=== PATIENT | female | born 2000 | race Caucasian/White ===

== ENCOUNTER 2023-05-31 08:23 | Emergency (ER) | payer OTHER ==
[2023-05-31 08:42] VITALS: TEMP 97.6
[2023-05-31 09:28] LABS: Group A Strep NOT DETECTED (NEGATIVE)
[2023-05-31 09:33] VITALS: BP 105/68
[2023-05-31 09:39] LABS: INFLUENZA A NEGATIVE (NEGATIVE); INFLUENZA B NEGATIVE (NEGATIVE); RESPIRATORY SYNCTIAL VIRUS NEGATIVE (NEGATIVE); SARS-CoV-2 Xpert Express NEGATIVE (NEGATIVE)
--- NOTE | 2023-05-31 09:40 | ERPHSYRPT ---
- History of Present Illness Time Seen by Provider: 05/31/23 08:40 Source: patient Exam Limitations: no limitations Patient Subjective Stated Complaint: C/O nasal congestion. Patient states her 10 month old son recently had RSV and her mother, whom she lives with had Covid recently. Triage Nursing Assessment: Patient ambulated back to ER without difficulties. No SOB. Patient has an occassional, dry, non-productive cough. Nasal congestion is present. Skin tone normal. JONES WNL. She is alert and oriented; anxious. Physician History: Patient is a 23-year-old female presents to our ED for evaluation of nasal congestion. Patient is concerned as her symptoms have been ongoing for 7 days. Positive sick contacts. Patient states she has been exposed to RSV and COVID. Patient symptoms are constant. Symptoms are moderate in intensity. No specific worsening or improving factors. No associated nausea vomiting or diarrhea. Patient admits to a infrequent dry cough otherwise she feels well. Patient currently afebrile. Patient states she is otherwise healthy and fully vaccinated. She voices no other complaints or concerns at this time. Portions of this note were created with voice recognition technology. There may be grammatical, spelling, punctuation or sound alike errors Timing/Duration: day(s) Severity: moderate Modifying Factors: Improves With: nothing Associated Symptoms: denies symptoms, No nausea, No fever, No syncope, No weakness Allergies/Adverse Reactions: No Known Drug Allergies Allergy (Verified 05/31/23 08:28) Home Medications: Ondansetron ODT 4 MG [Zofran Odt 4 mg] 1 tab PO Q8H PRN PRN 05/31/23 [History] Hx Tetanus, Diphtheria Vaccination/Date Given: Yes Hx Influenza Vaccination/Date Given: No Immunizations Up to Date: Yes Travel Risk - International Travel Have you traveled outside of the country in past 3 weeks: No - Coronavirus Screening Are you exhibiting any of the following symptoms?: Yes Symptoms: Cough: New Onset, Headaches/Body Aches/Fatigue Close contact with a COVID-19 positive Pt in past 14-21 Days: Yes - Vaccine Status Have you recieved a Covid-19 vaccination: Yes Bread Dough Mixer: Moderna - Vaccination Dates Date of 2cond Vaccination (if applicable): ? - Review of Systems Constitutional: No Symptoms, No Fever, No Chills Eyes: No Symptoms Ears, Nose, & Throat: No Symptoms Respiratory: No Symptoms, No Cough, No Dyspnea Cardiac: No Symptoms, No Chest Pain, No Edema, No Syncope Abdominal/Gastrointestinal: No Symptoms, No Abdominal Pain, No Nausea, No Vomiting, No Diarrhea Genitourinary Symptoms: No Symptoms, No Dysuria Musculoskeletal: No Symptoms, No Back Pain, No Neck Pain Skin: No Symptoms, No Rash Neurological: No Symptoms, No Dizziness, No Focal Weakness, No Sensory Changes Psychological: No Symptoms Endocrine: No Symptoms Hematologic/Lymphatic: No Symptoms Immunological/Allergic: No Symptoms All Other Systems: Reviewed and Negative - Past Medical History Pertinent Past Medical History: Yes Respiratory History: Other Musculoskeletal History: Fractures Psycho-Social History: Depression Other Medical History: "exercise asthma" - Past Surgical History Past Surgical History: Yes Musculoskeletal: Other Other Surgical History: leg (tib/fib), right shoulder with a plate, ankle - Social History Smoking Status: Never smoker Exposure to second hand smoke: No Drug Use: none Patient Lives Alone: No - Female History Hx Last Menstrual Period: ? Hx Now: Yes Gestational Age: ? - Nursing Vital Signs Nursing Vital Signs: Initial Vital Signs Temperature 97.6 F 05/31/23 08:31 Pulse Rate 100 H 05/31/23 08:31 Respiratory Rate 18 05/31/23 08:31 Blood Pressure 120/96 05/31/23 08:31 O2 Sat by Pulse Oximetry 98 05/31/23 08:31 Pain Scale Pain Intensity 0 - Physical Exam General Appearance: no apparent distress, alert Eye Exam: PERRL/EOMI, eyes nml inspection Ears, Nose, Throat Exam: normal ENT inspection, TMs normal, pharynx normal, moist mucous membranes, other (Nasal congestion) Neck Exam: normal inspection, non-tender, supple, full range of motion Respiratory Exam: normal breath sounds, lungs clear, airway intact, No respiratory distress Cardiovascular Exam: regular rate/rhythm, normal heart sounds, normal peripheral pulses Gastrointestinal/Abdomen Exam: soft, normal bowel sounds, No tenderness, No mass Back Exam: normal inspection, normal range of motion, No CVA tenderness, No vertebral tenderness Extremity Exam: normal inspection, normal range of motion, pelvis stable Neurologic Exam: alert, oriented x 3, cooperative, normal mood/affect, sensation nml, No motor deficits Skin Exam: normal color, warm, dry, No rash Lymphatic Exam: No adenopathy SpO2 Interpretation: normal SpO2: 95 O2 Delivery: Room Air - Course Nursing assessment & vital signs reviewed: Yes Lab/Rad Data: Laboratory Results 05/31/23 Range/Units Unknown Influenza Type A Ag NEGATIVE (NEGATIVE) Influenza Type B Ag NEGATIVE (NEGATIVE) RSV (PCR) NEGATIVE (NEGATIVE) SARS-CoV-2 (PCR) NEGATIVE (NEGATIVE) Group A Strep Antibody NOT DETECTED (NEGATIVE) - Progress Progress: improved Progress Note: Patient a 23-year-old female , states she is due in July presents to our ED for nasal congestion evaluation. She has no complaints regarding her . Physical exam essentially nonremarkable. Patient RSV flu COVID- negative. Rapid strep negative. Vital stable. No indication for further workup. Patient explained the importance of hydration and symptomatic/conservative management. Patient agrees to follow-up with her primary care doctor within 48 hours for evaluation. Family at bedside. They voiced no other complaints or concerns at this time. Portions of this note were created with voice recognition technology. There may be grammatical, spelling, punctuation or sound alike errors Complains of problem addressed is low acute uncomplicated No critical care time Complexity of data reviewed and analyzed is minimal. Test ordered test reviewed. Results analyzed and correlated clinically with history and physical exam. Risk of complication and or risk morbidity/mortality of patient management is low Vital stable. Time spent to discharge patient is approximately 10 minutes. Diagnosis is upper respiratory infection. Plan of care established for shared decision making. No social determinants of health present impede follow-up. Portions of this note were created with voice recognition technology. There may be grammatical, spelling, punctuation or sound alike errors 05/31/23 09:50 Counseled pt/family regarding: lab results, diagnosis, need for follow-up - Departure Departure Disposition: Home Clinical Impression: URI (upper respiratory infection) Condition: Stable Critical Care Time: No Referrals: KAYCE RODRIGUEZ MD [Primary Care Provider] - Follow up/PCP as directed Additional Instructions: Discharge/Care Plan JENNIFFER CLEARY was seen on 05/31/23 in the Emergency Room. The patient was counseled regarding Diagnosis,Lab results, Imaging studies, need for follow up and when to return to the Emergency Room. Prescriptions given: Discharge Note I have spoken with the patient and/or caregivers. I have explained the patient's condition, diagnosis and treatment plan based on the information available to me at this time. I have answered the patient's and/or caregiver's questions and addressed any concerns. The patient and/or caregivers have as good understanding of the patient's diagnosis, condition and treatment plan as can be expected at this point. The vital signs have been stable. The patient's condition is stable and appropriate for discharge from the emergency department. The patient will pursue further outpatient evaluation with the primary care physician or other designated or consulting physician as outlined in the discharge instructions. The patient and/or caregivers are agreeable to this plan of care and follow-up instructions have been explained in detail. The patient and/or caregivers have received these instruction. The patient/and or caregivers are aware that any significant change in condition or worsening of symptoms should prompt an immediate return to this or the closest emergency department or call 911.
[2023-05-31 09:52] VITALS: PULSE 98; RESP 18
[2023-05-31 09:54] VITALS: O2SAT 95
== END 2023-05-31 10:04 | disposition home or self-care (01) ==
LOC: ED 08:23
DX: J06.9 Acute upper respiratory infection, unspecified (principal); R09.81 Nasal congestion; R05.9 Cough, unspecified; Z20.828 Contact with and (suspected) exposure to other viral communicable diseases
CPT/HCPCS: 0241U; 87651; 99282

== ENCOUNTER 2023-08-09 03:05 | Inpatient (IN) | payer OTHER ==
[2023-08-09] MEDS ORDERED: TYLENOL EXTRA STRENGTH 500 MG PO PRN (18:00)
[2023-08-09] MEDS ORDERED: Nubain 10 MG/ML IV PRN (18:00)
[2023-08-09] MEDS ORDERED: STADOL 2 MG IV PRN (18:00)
[2023-08-09] MEDS ORDERED: Ephedrine Sulfate 50 MG/ML IV PRN (18:00)
[2023-08-09] MEDS ORDERED: PITOCIN 30 UNITS/ LR 500 ML 30 UNITS/500 ML PLAST..BAG IV SCH (18:00)
[2023-08-09 20:07] LABS: Absolute Neutrophil Ct (ANC) 4.85 x10^3/uL (1.4-6.9); BASOPHIL % 0.3 % (0.0-0.4); Basophil (Absolute #) 0.02 x10^3/uL (0-0.4); Eosinophil % 0.5 % (0.00-5.0); Eosinophil (Absolute #) 0.04 x10^3/uL (0-0.5); Hematocrit 32.4 % (35-47); Hemoglobin 9.7 g/dL (12.0-16.0); IMMATURE GRAN # 0.04 x10^3u/L (0.00-0.03); IMMATURE GRAN % 0.5 % (0.00-0.4); Lymphocyte (Absolute #) 2.31 x10^3/uL (1.0-4.6); Lymphocytes % 29.5 % (24.0-44.0); Mean Cell Volume 79.8 fL (78-100); Mean Corpuscular Hemoglobin 23.9 pg (26-32); Mean Corpuscular Hgb Concent. 29.9 g/dL (32-36); Mean Platelet Volume 10.3 fL (7.5-11.0); Monocyte (Absolute #) 0.56 x10^3/uL (0.0-1.3); Monocytes % 7.2 % (0.0-12.0); Platelet Count 239 x10^3/uL (150-450); Red Blood Count 4.06 x10^6/uL (4.1-5.4); White Blood Count 7.8 x10^3/uL (4.0-10.5)
[2023-08-09] MEDS: Zofran 4 MG/2 ML VIAL IV PRN (20:21)
[2023-08-09 20:29] LABS: Appearance Clear (Clear); Bacteria Rare /HPF (None Seen); Bilirubin Negative (Negative); Blood Negative (Negative); Epithelial Cells Few /HPF (None Seen); Glucose, Urine Negative (Negative); Hyaline Casts NONE SEEN /LPF (0-2); Ketones Trace (Negative); Leukocyte Esterase Large (Negative); Nitrite Negative (Negative); Ph 6.5 (4.6-8.0); Protein,Urine Dip Trace (Negative); RBC 0-2 /HPF (0-5); WBC 51-100 /HPF (0-5)
[2023-08-09] MEDS ORDERED: BENADRYL 25 MG CAPSULE PO PRN (20:32)
[2023-08-09 20:42] LABS: ADD URINE CULTURE? YES (NO)
[2023-08-09 21:07] LABS: ABO TYPING O; Antibody Screen NEGATIVE (NEGATIVE); RH TYPING POSITIVE
[2023-08-09 22:23] LABS: Slide Review 1 YES
[2023-08-09 22:38] LABS: Amphetamine,Urine SEE SEPARATE REPORT (NEGATIVE); Barbiturate,Urine SEE SEPARATE REPORT (NEGATIVE); Benzodiazepine,Urine SEE SEPARATE REPORT (NEGATIVE); Cocaine,Urine SEE SEPARATE REPORT (NEGATIVE); Methadone,Urine SEE SEPARATE REPORT (NEGATIVE); Opiate,Urine SEE SEPARATE REPORT (NEGATIVE); PCP,Urine SEE SEPARATE REPORT (NEGATIVE); THC,Urine SEE SEPARATE REPORT (NEGATIVE)
[2023-08-10] MEDS: Lactated Ringers 1,000 ML IV SCH (00:26)
[2023-08-10] MEDS: OMNIPEN 2 GM*** 2 G in Sodium Chloride 100ML MINI-BAG PLUS 100 ML IV SCH (01:50)
[2023-08-10] MEDS: MORPHINE SULFATE 4 MG INJ IV PRN (02:05)
[2023-08-10] MEDS: Lactated Ringers 1,000 ML IV ONE (03:57)
[2023-08-10] MEDS ORDERED: XYLOCAINE 2%/Epi 1:200000 20ML VIAL MPF ONE (04:47)
[2023-08-10] MEDS ORDERED: XYLOCAINE 1% HCL 20 ML MDV ONE ×2 (04:48→11:44)
[2023-08-10] MEDS: OMNIPEN 1 GM*** 1 GM in Sodium Chloride 100ML MINI-BAG PLUS 100 ML IV SCH (05:27)
[2023-08-10] MEDS: Zofran 4 MG/2 ML VIAL IV PRN (05:58)
[2023-08-10] MEDS: XYLOCAINE 1% HCL 20 ML MDV IJ ONE (06:02)
[2023-08-10] MEDS: FENTANYL 2 MCG-BUPIV 0.125%-NS 250 ML Epidur 250 ML EPIDURAL SCH (06:30)
[2023-08-10] MEDS: PITOCIN 30 UNITS/ LR 500 ML 30 UNITS/500 ML PLAST..BAG IV SCH (06:31)
--- NOTE | 2023-08-10 07:31 | PCM.HP ---
History of Present Illness - Chief Complaint Chief Complaint: IUP Date: 08/10/23 History of Present Illness: is a 23 year old female. who is a at 40 weeks and 1 day today. She presneted last evening for elective Induction of labor. Pregtnancy has been complicated by iron def anemia, Mulitple UTI's, social issues relatd to previous child, obesity, and GBS pos. She was given Cytotec 25 mcg x 2 po and was faby well antibiotics were started at around 1 am for GBS pos status. She had SROM around 305 am. She then requested Epidural and this was placed 530 am. She was then examined around 530 am and was 3-4 cm/75/-2. I was updated to the events and then notified around 650 am that the patient was experiencing left upper shoulder pain since the epidural was placed. while on the phone she was screaming out in pain. I then headed to hospital and ordered Morphine 4 mg IV and an EKG. On arrival I examined the patient and she was a little groggy but abl to answere questions. She stated that the pain started after epidural placement and is severe. She has a baseline shoulder pain in the right from a previous trauma injury. She states the morphine has helped some and she is not screaming out any more. She has no other symptoms no CP, No SOB. HEr VS are stable O2 sat was 98%. - Review of Systems Constitutional: No Fever, No Chills Eyes: No Symptoms Ears, Nose, & Throat: No Symptoms Respiratory: No Cough, No Short Of Breath Cardiac: No Chest Pain, No Edema, No Syncope Abdominal/Gastrointestinal: No Abdominal Pain, No Nausea, No Vomiting, No Diarrhea Genitourinary Symptoms: Other (has had frequent UTI), No Dysuria Musculoskeletal: Other (LEft Shoulder pain ) Skin: No Rash Neurological: No Dizziness, No Focal Weakness, No Sensory Changes Psychological: No Symptoms Endocrine: No Symptoms Hematologic/Lymphatic: No Symptoms Immunological/Allergic: No Symptoms Medications & Allergies Home Medications: Home Medication List Ondansetron ODT 4 MG [Zofran Odt 4 mg] 1 tab PO Q8H PRN PRN 05/31/23 [History Confirmed 08/09/23] Mv-Mn/Iron/FA/Herbal/Digestive [ One Tablet] 1 each PO 08/09/23 [History] Nystatin Powder 15 gm [Nystop Powder 15 gm] 15 gm TP 08/09/23 [History] Allergies/Adverse Reactions: Allergies Allergy/AdvReac Type Severity Reaction Status Date / Time latex Allergy Intermediate Hives Verified 08/09/23 21:29 - Past Medical History Past Medical History: Yes Neurological History: No Pertinent History ENT History: No Pertinent History Cardiac History: No Pertinent History Respiratory History: No Pertinent History, Other Endocrine Medical History: No Pertinent History Musculoskelatal History: Fractures, Other (Right shoulder pain ) GI Medical History: No Pertinent History History: No Pertinent History Pyscho-Social History: Depression Reproductive Disorders: No Pertinent History Comment: "exercise asthma" - Female History Are you now?: Yes (LILI 08/09/2023) Expected Date of Delivery: 08/09/23 - Past Surgical History Past Surgical History: Yes (shoulder surgery in 2016) Neuro Surgical History: No Pertinent History Cardiac History: No Pertinent History Respiratory Surgery: No Pertinent History GI Surgical History: No Pertinent History Genitourinary Surgical Hx: No Pertinent History Musculskeletal Surgical Hx: Other Female Surgical History: No Pertinent History Other Surgical History: leg (tib/fib), right shoulder with a plate, ankle - Social History Smoking Status: Never smoker Exposure to second hand smoke: No Alcohol: None Drug Use: none - Social Determinants of Health Will the patient participate in the screening: Yes Do you worry about a steady place to live?: No Do you have any problems with any of the following?: No known problems In the past 12 months,have you had to go without utilities?: No Have you or anyone in your house had to go without enough: No Transportation Issues: No Has anyone in your support network made you feel unsafe?: No Does the patient want assistance with any of the above?: No - Physical Exam Vital Signs: Vital Signs - 24 hr Temp Pulse Resp BP BP Pulse Ox 08/10/23 07:00 83 24 140/87 100 08/10/23 06:01 98.3 F 90 20 121/70 97 08/10/23 05:30 98.3 F 90 20 121/70 97 08/10/23 05:00 98.3 F 90 20 121/70 97 08/10/23 03:58 98.3 F 90 20 121/70 97 08/10/23 03:05 98.3 F 90 20 121/70 97 08/10/23 03:00 98.3 F 90 20 121/70 107/56 97 08/10/23 02:00 90 20 121/70 97 08/10/23 01:00 79 16 79 L 08/10/23 00:00 81 16 87 L 08/09/23 23:53 81 16 107/56 96 08/09/23 23:00 96 H 20 97 08/09/23 22:00 80 18 97 08/09/23 21:00 96 H 20 97 08/09/23 20:00 98.1 F 94 H 20 97 08/09/23 19:30 98.1 F 94 H 20 115/72 97 General Appearance: no apparent distress, mild distress, alert, other (From Shoulder pain.) Neurologic Exam: alert, oriented x 3, cooperative, normal mood/affect, nml cerebellar function, nml station & gait, sensation nml, No motor deficits Eye Exam: PERRL/EOMI, eyes nml inspection Ears, Nose, Throat Exam: normal ENT inspection, TMs normal, pharynx normal, moist mucous membranes Neck Exam: other (difficulty with flexion of neck) Respiratory Exam: normal breath sounds, lungs clear, No respiratory distress Cardiovascular Exam: regular rate/rhythm, normal heart sounds, normal peripheral pulses Gastrointestinal/Abdomen Exam: soft, normal bowel sounds, other (Gravid uterus), No tenderness, No mass Pelvic Exam: not done, other (Last cervical exam at 530 am 3-4/75%/-2 FHT: Reviewed and have been CAt 1 toco: Q3-4 min) Back Exam: other (back exam done she is having pain to the touch midway up the back on the right side to the right shoulder and top of the shoulder. She is unable to raise her right arm. She is having pain with neck flexion.) Extremity Exam: normal inspection, normal range of motion, pelvis stable Skin Exam: normal color, warm, dry, No rash Lymphatic Exam: No adenopathy Results - Labs Lab/Micro Results: Lab Results-Last 24 Hours 08/09/23 08/09/23 08/09/23 Range/Units 19:57 19:57 20:00 WBC 7.8 (4.0-10.5) x10^3/uL RBC 4.06 L (4.1-5.4) x10^6/uL Hgb 9.7 L (12.0-16.0) g/dL Hct 32.4 L (35-47) % MCV 79.8 (78-100) fL MCH 23.9 L (26-32) pg MCHC 29.9 L (32-36) g/dL RDW 29.0 H (11.5-14.0) % Plt Count 239 (150-450) x10^3/uL MPV 10.3 (7.5-11.0) fL Gran % 62.0 (36.0-66.0) % Immature Gran % (Auto) 0.5 H (0.00-0.4) % Nucleat RBC Rel Count 0.0 (0.00-0.1) % Eos # (Auto) 0.04 (0-0.5) x10^3/uL Immature Gran # (Auto) 0.04 H (0.00-0.03) x10^3u/L Absolute Lymphs (auto) 2.31 (1.0-4.6) x10^3/uL Absolute Monos (auto) 0.56 (0.0-1.3) x10^3/uL Absolute Nucleated RBC 0.00 (0.00-0.01) x10^3u/L Lymphocytes % 29.5 (24.0-44.0) % Monocytes % 7.2 (0.0-12.0) % Eosinophils % 0.5 (0.00-5.0) % Basophils % 0.3 (0.0-0.4) % Absolute Granulocytes 4.85 (1.4-6.9) x10^3/uL Basophils # 0.02 (0-0.4) x10^3/uL Urine Color Yellow (Yellow) Urine Appearance Clear (Clear) Urine pH 6.5 (4.6-8.0) Ur Specific [place] 1.020 (1.005-1.030) Urine Protein Trace A (Negative) Urine Glucose (UA) Negative (Negative) mg/dL Urine Ketones Trace A (Negative) Urine Blood Negative (Negative) Urine Nitrite Negative (Negative) Urine Bilirubin Negative (Negative) Urine Urobilinogen 2.0 A (0.2) mg/dL Ur Leukocyte Esterase Large A (Negative) U Hyaline Cast (Auto) NONE SEEN (0-2) /LPF Urine Microscopic RBC 0-2 (0-5) /HPF Urine Microscopic WBC 51-100 A (0-5) /HPF Ur Epithelial Cells Few (None Seen) /HPF Urine Bacteria Rare A (None Seen) /HPF Urine Culture Reflexed YES (NO) Urine Opiates Level (NEGATIVE) Ur Methadone (NEGATIVE) Urine Barbiturates (NEGATIVE) Ur Phencyclidine (PCP) (NEGATIVE) Urine Amphetamine (NEGATIVE) U Benzodiazepine Level (NEGATIVE) Urine Cocaine (NEGATIVE) Urine Marijuana (THC) (NEGATIVE) Slides for Path Review YES ABO Group O Rh Factor POSITIVE Antibody Screen NEGATIVE (NEGATIVE) 08/09/23 Range/Units 20:08 WBC (4.0-10.5) x10^3/uL RBC (4.1-5.4) x10^6/uL Hgb (12.0-16.0) g/dL Hct (35-47) % MCV (78-100) fL MCH (26-32) pg MCHC (32-36) g/dL RDW (11.5-14.0) % Plt Count (150-450) x10^3/uL MPV (7.5-11.0) fL Gran % (36.0-66.0) % Immature Gran % (Auto) (0.00-0.4) % Nucleat RBC Rel Count (0.00-0.1) % Eos # (Auto) (0-0.5) x10^3/uL Immature Gran # (Auto) (0.00-0.03) x10^3u/L Absolute Lymphs (auto) (1.0-4.6) x10^3/uL Absolute Monos (auto) (0.0-1.3) x10^3/uL Absolute Nucleated RBC (0.00-0.01) x10^3u/L Lymphocytes % (24.0-44.0) % Monocytes % (0.0-12.0) % Eosinophils % (0.00-5.0) % Basophils % (0.0-0.4) % Absolute Granulocytes (1.4-6.9) x10^3/uL Basophils # (0-0.4) x10^3/uL Urine Color (Yellow) Urine Appearance (Clear) Urine pH (4.6-8.0) Ur Specific [place] (1.005-1.030) Urine Protein (Negative) Urine Glucose (UA) (Negative) mg/dL Urine Ketones (Negative) Urine Blood (Negative) Urine Nitrite (Negative) Urine Bilirubin (Negative) Urine Urobilinogen (0.2) mg/dL Ur Leukocyte Esterase (Negative) U Hyaline Cast (Auto) (0-2) /LPF Urine Microscopic RBC (0-5) /HPF Urine Microscopic WBC (0-5) /HPF Ur Epithelial Cells (None Seen) /HPF Urine Bacteria (None Seen) /HPF Urine Culture Reflexed (NO) Urine Opiates Level SEE SEPARATE REPORT (NEGATIVE) Ur Methadone SEE SEPARATE REPORT (NEGATIVE) Urine Barbiturates SEE SEPARATE REPORT (NEGATIVE) Ur Phencyclidine (PCP) SEE SEPARATE REPORT (NEGATIVE) Urine Amphetamine SEE SEPARATE REPORT (NEGATIVE) U Benzodiazepine Level SEE SEPARATE REPORT (NEGATIVE) Urine Cocaine SEE SEPARATE REPORT (NEGATIVE) Urine Marijuana (THC) SEE SEPARATE REPORT (NEGATIVE) Slides for Path Review ABO Group Rh Factor Antibody Screen (NEGATIVE) - Other Procedures and Tests Respiratory Therapy 08/10/23 06:53 EKG STAT Assessment/Plan (1) Post term over 40 weeks Current Visit: Yes Status: Acute Assessment & Plan: Pt was admitted at 40 weeks for IOL. Now s/p Cytotec 25 mcg x 2 po, progressed to AROM clear fluid, and now S/p AMpicillin x 2, She then had epidural placed that resulted in sever left shoulder pain. Assessment and EKG was done. Zak Delcid also assessed and decision made to remove the epidural. It was giving her relief from labor but the pain was unbearable to the patient, that she required a dose of Morphine 4 mg IV. The epidural was turned off initially and then removed by Zak Delcid. EKG was performed and this showed NSR. SHe dis not have chest pain or prssure the pain was located in the left upper back , shoulder and neck with flexion. Will continue to monitor, the patient can only sit upright and we are having a hard time tracing baby that I am going to apply an FSE and IUPC for contractions. Code(s): O48.0 - POST-TERM (2) Chronic UTI Current Visit: Yes Status: Acute Assessment & Plan: The patient has been on several courses of antibiotics most recent cx was mixed kamaljit. Will check URine culture from cath specimen. Code(s): N39.0 - URINARY TRACT INFECTION, SITE NOT SPECIFIED (3) Iron deficiency anemia Current Visit: Yes Status: Acute Assessment & Plan: The patient is s/p Iron infusion x 3 hgb 9.7 on admit Code(s): D50.9 - IRON DEFICIENCY ANEMIA, UNSPECIFIED (4) GBS (group B Streptococcus carrier), +RV culture, currently Current Visit: Yes Status: Acute Assessment & Plan: Antibiotics while in labor. Code(s): O99.820 - STREPTOCOCCUS B CARRIER STATE COMPLICATING
--- NOTE | 2023-08-10 08:20 | PCM.NOTE ---
Date and Time: 08/10/23816 Subjective Assessment: Patient undergoing IOL unable to hop picker FHT and Tracings for ctx. Pt is better after epidural removed. Objective Exam Pelvic Exam: other (SVE: /-2 FHT: Cat 1 [place]: Q3-4) Objective Data Vital Signs: Vital Signs - 24 hr Temp Pulse Resp BP BP Pulse Ox 08/10/23 07:00 83 24 140/87 100 08/10/23 06:01 98.3 F 90 20 121/70 97 08/10/23 05:30 98.3 F 90 20 121/70 97 08/10/23 05:00 98.3 F 90 20 121/70 97 08/10/23 03:58 98.3 F 90 20 121/70 97 08/10/23 03:05 98.3 F 90 20 121/70 97 08/10/23 03:00 98.3 F 90 20 121/70 107/56 97 08/10/23 02:00 90 20 121/70 97 08/10/23 01:00 79 16 79 L 08/10/23 00:00 81 16 87 L 08/09/23 23:53 81 16 107/56 96 08/09/23 23:00 96 H 20 97 08/09/23 22:00 80 18 97 08/09/23 21:00 96 H 20 97 08/09/23 20:00 98.1 F 94 H 20 97 08/09/23 19:30 98.1 F 94 H 20 115/72 97 Pain Assessment - Last Documented Pain Intensity [Anterior/ 10 Posterior] Pain Intensity 10 Pain Scale Used 0-10 Pain Scale Intake and Output: Intake & Output 08/07/23 08/08/23 08/09/23 08/10/23 11:59 11:59 11:59 11:59 Output Total 200 Balance -200 Weight 98.43 kg Lab Results: Lab Results-Last 24 Hours 08/09/23 08/09/23 08/09/23 Range/Units 19:57 19:57 20:00 WBC 7.8 (4.0-10.5) x10^3/uL RBC 4.06 L (4.1-5.4) x10^6/uL Hgb 9.7 L (12.0-16.0) g/dL Hct 32.4 L (35-47) % MCV 79.8 (78-100) fL MCH 23.9 L (26-32) pg MCHC 29.9 L (32-36) g/dL RDW 29.0 H (11.5-14.0) % Plt Count 239 (150-450) x10^3/uL MPV 10.3 (7.5-11.0) fL Gran % 62.0 (36.0-66.0) % Immature Gran % (Auto) 0.5 H (0.00-0.4) % Nucleat RBC Rel Count 0.0 (0.00-0.1) % Eos # (Auto) 0.04 (0-0.5) x10^3/uL Immature Gran # (Auto) 0.04 H (0.00-0.03) x10^3u/L Absolute Lymphs (auto) 2.31 (1.0-4.6) x10^3/uL Absolute Monos (auto) 0.56 (0.0-1.3) x10^3/uL Absolute Nucleated RBC 0.00 (0.00-0.01) x10^3u/L Lymphocytes % 29.5 (24.0-44.0) % Monocytes % 7.2 (0.0-12.0) % Eosinophils % 0.5 (0.00-5.0) % Basophils % 0.3 (0.0-0.4) % Absolute Granulocytes 4.85 (1.4-6.9) x10^3/uL Basophils # 0.02 (0-0.4) x10^3/uL Urine Color Yellow (Yellow) Urine Appearance Clear (Clear) Urine pH 6.5 (4.6-8.0) Ur Specific [place] 1.020 (1.005-1.030) Urine Protein Trace A (Negative) Urine Glucose (UA) Negative (Negative) mg/dL Urine Ketones Trace A (Negative) Urine Blood Negative (Negative) Urine Nitrite Negative (Negative) Urine Bilirubin Negative (Negative) Urine Urobilinogen 2.0 A (0.2) mg/dL Ur Leukocyte Esterase Large A (Negative) U Hyaline Cast (Auto) NONE SEEN (0-2) /LPF Urine Microscopic RBC 0-2 (0-5) /HPF Urine Microscopic WBC 51-100 A (0-5) /HPF Ur Epithelial Cells Few (None Seen) /HPF Urine Bacteria Rare A (None Seen) /HPF Urine Culture Reflexed YES (NO) Urine Opiates Level (NEGATIVE) Ur Methadone (NEGATIVE) Urine Barbiturates (NEGATIVE) Ur Phencyclidine (PCP) (NEGATIVE) Urine Amphetamine (NEGATIVE) U Benzodiazepine Level (NEGATIVE) Urine Cocaine (NEGATIVE) Urine Marijuana (THC) (NEGATIVE) Slides for Path Review YES ABO Group O Rh Factor POSITIVE Antibody Screen NEGATIVE (NEGATIVE) 08/09/23 Range/Units 20:08 WBC (4.0-10.5) x10^3/uL RBC (4.1-5.4) x10^6/uL Hgb (12.0-16.0) g/dL Hct (35-47) % MCV (78-100) fL MCH (26-32) pg MCHC (32-36) g/dL RDW (11.5-14.0) % Plt Count (150-450) x10^3/uL MPV (7.5-11.0) fL Gran % (36.0-66.0) % Immature Gran % (Auto) (0.00-0.4) % Nucleat RBC Rel Count (0.00-0.1) % Eos # (Auto) (0-0.5) x10^3/uL Immature Gran # (Auto) (0.00-0.03) x10^3u/L Absolute Lymphs (auto) (1.0-4.6) x10^3/uL Absolute Monos (auto) (0.0-1.3) x10^3/uL Absolute Nucleated RBC (0.00-0.01) x10^3u/L Lymphocytes % (24.0-44.0) % Monocytes % (0.0-12.0) % Eosinophils % (0.00-5.0) % Basophils % (0.0-0.4) % Absolute Granulocytes (1.4-6.9) x10^3/uL Basophils # (0-0.4) x10^3/uL Urine Color (Yellow) Urine Appearance (Clear) Urine pH (4.6-8.0) Ur Specific [place] (1.005-1.030) Urine Protein (Negative) Urine Glucose (UA) (Negative) mg/dL Urine Ketones (Negative) Urine Blood (Negative) Urine Nitrite (Negative) Urine Bilirubin (Negative) Urine Urobilinogen (0.2) mg/dL Ur Leukocyte Esterase (Negative) U Hyaline Cast (Auto) (0-2) /LPF Urine Microscopic RBC (0-5) /HPF Urine Microscopic WBC (0-5) /HPF Ur Epithelial Cells (None Seen) /HPF Urine Bacteria (None Seen) /HPF Urine Culture Reflexed (NO) Urine Opiates Level SEE SEPARATE REPORT (NEGATIVE) Ur Methadone SEE SEPARATE REPORT (NEGATIVE) Urine Barbiturates SEE SEPARATE REPORT (NEGATIVE) Ur Phencyclidine (PCP) SEE SEPARATE REPORT (NEGATIVE) Urine Amphetamine SEE SEPARATE REPORT (NEGATIVE) U Benzodiazepine Level SEE SEPARATE REPORT (NEGATIVE) Urine Cocaine SEE SEPARATE REPORT (NEGATIVE) Urine Marijuana (THC) SEE SEPARATE REPORT (NEGATIVE) Slides for Path Review ABO Group Rh Factor Antibody Screen (NEGATIVE) Assessment/Plan (1) Post term over 40 weeks Current Visit: Yes Status: Acute Assessment & Plan: IUPC placed without difficulty and FSE placed. Code(s): O48.0 - POST-TERM (2) Chronic UTI Current Visit: Yes Status: Acute Code(s): N39.0 - URINARY TRACT INFECTION, SITE NOT SPECIFIED (3) Iron deficiency anemia Current Visit: Yes Status: Acute Code(s): D50.9 - IRON DEFICIENCY ANEMIA, UNSPECIFIED (4) GBS (group B Streptococcus carrier), +RV culture, currently Current Visit: Yes Status: Acute Code(s): O99.820 - STREPTOCOCCUS B CARRIER STATE COMPLICATING
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
[2023-08-10] MEDS ORDERED: Methergine ONE (11:38)
[2023-08-10] MEDS: Methergine IM ONE (12:41)
[2023-08-10] MEDS ORDERED: Anucort-HC SUPPOSITORY PR PRN (13:18)
[2023-08-10] MEDS ORDERED: NORCO 5/325 MG PO PRN (13:18)
[2023-08-10] MEDS ORDERED: TYLENOL EXTRA STRENGTH 500 MG PO PRN (13:18)
[2023-08-10] MEDS ORDERED: Dulcolax 10 MG SUPP PR PRN (13:18)
[2023-08-10] MEDS ORDERED: Ambien 10 MG PO PRN (13:18)
[2023-08-10] MEDS ORDERED: Mylicon 80MG PO PRN (13:18)
[2023-08-10] MEDS: MOTRIN 400 MG PO PRN (14:23)
[2023-08-10] MEDS: LANSINOH 40 GM TOP PRN (14:24)
[2023-08-10] MEDS: Dermoplast Spray TP PRN (14:25)
[2023-08-10] MEDS: TUCKS TP PRN (14:25)
--- NOTE | 2023-08-10 18:01 | OP ---
OB OP NOTE - OPERATIVE NOTE Surgery Date: 08/10/23 Surgery Time: 11:32 PREOPERATIVE DIAGNOSIS: at 40 and 1 weeks. Iron deficiency anemia. GBS carrier positive. Social Issues with . Chronic Right Shoulder pain. Chronic UTI during POST OPERATIVE DIAGNOSIS: same Procedure: Surgeon: ESEQUIEL BYERS ANESTHESIA: Epidural Zak Delcid ESTIMATED BLOOD LOSS: 524 ml CONDITION: Stable COMPLICATIONS: Epidural problems that caused severe left shoulder pain, unknown cause but the epidural was removed. SPECIMEN: Placenta and cord blood HISTORY - HISTORY HISTORY: 23 yo admitted at 40 weeks gestation for IOL. complicated by iron deficiency anemia s/p Iron transfusion x 3, Chronic UTI and yeast infections, GBS positive, Chronic Right Shoulder pain, and social issues concerning previous child. It was also noted on Last OB visit a bedside US was done and she had gread 3 placenta. Growth scans were performed during as she had prior history of SGA. These showed normal growth. The patients induction was started with Cytotec she received 2 doses and was faby well, antibiotics were started after the second dose of Cytotec and then she had SROM for clear fluid. She then requested Epidrual for labor anesthesia. An epidural was placed around 530 am, It was working well for labor pain however the patient startted experiencing severe Left shoulder pain requiring narcotic analgesics. An EKG was also done and showed NSR. VS remained stable. After evaluation and discussion with I rec we remove the epidural. We discussed possible causes one being existing spinal stenosis. The patient then progressed in labor and was 6-7 cm and urge to push, The nurses helped control her breathing and she was placed in knee chest position for some comfort and relief she did receive another dose of Morphine for pain. SHe continued to progress and she was in knee chest position and had a thick anterior lip. The patient was placed back in supine position and she was uncontrollably pushing. I was present at the bedside and attempted to push the cervix behind the baby's head while she was pushing uncontrollably, THe catheter was removed. She then became complete and she started pushing. After about 5 contractions. She progressed to delivery. FINDINGS - FINDINGS FINDINGS: FINDINGS:Male infant delivere in ROP position, Clear fluid, Apgars 9/9 at 1 and 5 min, QBL 325 ml, Infant weight 6lb 8oz. Placenta delivered, She had large amount of trailing membranes. The placenta was inspected all cotyledons appeared normal. 3 V cord. She was given Methergine for prophylaxis as she had low HGb of 9.7 to start. DESCRIPTION OF PROCEDURE - DESCRIPTION OF PROCEDURE DESCRIPTION OF PROCEDURE: DESCRIPTION OF PROCEDURE: The patient was prepped for delivery in [facility]. She pushed approx with 5 contractions and the head delivered ROP position followed by the shoulders and then the body. The infant was placed to the mother's abdomen dried and suctioned both mouth and nares. The cord was doubly clamped at 1 min and then cut by the FOB. Pitocin was started for active managment of the third stage of labor. The placenta then delivered. The vaginal vault was inspected and there were the following lacerations. Right vaginal side wall 1st degree laceration, a left labial 1st degree laceration both repaired with 3-O vicryl figure of 8 suture. The cervix was then inspected and trailing membranes noted at the level of the cervix, these were removed and noted to be a large amount. Methergine was also given for prophylaxis as she had low hgb to start of 9.7. Once the trailing membranes were eased out with ring forceps and twisting motion. The cervix was visualized and noted to be intact and without laceration or bleeding. Instruments removed and the patient was cleaned. Spoge counts were correct and needle count was correct and needle was removed from the table by myself. Pt tolerated well and other than the severe left shoulder pain there were no other complications.
[2023-08-11] MEDS: TYLENOL EXTRA STRENGTH 500 MG PO PRN (00:12)
[2023-08-11 04:33] LABS: Absolute Neutrophil Ct (ANC) 7.66 x10^3/uL (1.4-6.9); BASOPHIL % 0.3 % (0.0-0.4); Basophil (Absolute #) 0.03 x10^3/uL (0-0.4); Eosinophil % 0.6 % (0.00-5.0); Eosinophil (Absolute #) 0.07 x10^3/uL (0-0.5); Hematocrit 33.2 % (35-47); IMMATURE GRAN # 0.05 x10^3u/L (0.00-0.03); IMMATURE GRAN % 0.4 % (0.00-0.4); Lymphocyte (Absolute #) 2.91 x10^3/uL (1.0-4.6); Mean Cell Volume 80.4 fL (78-100); Mean Corpuscular Hemoglobin 24.2 pg (26-32); Mean Corpuscular Hgb Concent. 30.1 g/dL (32-36); Mean Platelet Volume 10.9 fL (7.5-11.0); Monocytes % 7.7 % (0.0-12.0); Platelet Count 231 x10^3/uL (150-450); Red Blood Count 4.13 x10^6/uL (4.1-5.4); Red Cell Distribution Width 29.4 % (11.5-14.0); White Blood Count 11.6 x10^3/uL (4.0-10.5)
[2023-08-11 06:48] LABS: Slide Review 1 YES
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
[2023-08-11] MEDS: Docusate Sodium 100 MG PO SCH (11:33)
[2023-08-11] MEDS: FERREX 150 PO SCH (11:34)
--- NOTE | 2023-08-11 11:55 | XRAY ---
Indication: Retained products of conception. Two-dimensional transvaginal pelvic sonogram performed. Comparison: None Enlarged 15.0 x 2.0 x 7.8 cm uterus from recent gravid status. Endometrial cavity demonstrates diffuse irregular hypoechogenicity up to 2 cm in thickness either blood products versus retained parts of conception. Neither ovaries visualized. No suspicious adnexal mass or free fluid.
[2023-08-11] MEDS: Adacel Vial IM ONE (20:36)
[2023-08-12 08:38] VITALS: RESP 14
--- NOTE | 2023-08-12 15:19 | PCM.DS ---
Discharge Summary Date of Admission: 08/09/23 03:05 Date of Discharge: 08/12/23 Admitting Physician: ESEQUIEL BYERS DO Consults: Consults on Case 08/09/23 18:00 Notify Anesthesia Provider PRN 08/10/23 09:22 Navigation ONCE 08/10/23 09:39 Navigation ONCE Primary Care Provider: KAYCE RODRIGUEZ Allergies Allergies latex Allergy (Intermediate, Verified 08/09/23 21:29) [facility] Summary - Hospital Course Hospital Course: Pt is 23 yo G2 now P2 who was brought in on the evening of 3.26 for IOL at 40 weeks. She was given Cytotec 25 mcg po x2 she was contacting and PCN was started for GBS Pos status. She then progressed to SROM and requested epidural . This was placedaroun 530 am and by 630 am she ws having extreme left shoulder pain from the epidutal. She was given morphine for pain and then the epidural was removed. The patientcontinued in labor and progressed to delivery withour complications. male. She did well post . there were a lot of trailing membranes and an US was done on PP day 1. This should thickened endometrium however in speaking with the US tech there was no color flow to the uterine lining. She did recieve Methergine post delivery for prophylaxis as she has Iron deficiency anemia and was s/p 3 iron infusions. She was breast feeding well, passing flatus and voiding well. DCS has open case with her on her previous infant who is in foster care. They have now taken the baby into their custody. The patient is upset and depressed by this. and desires medication to help at home. Pt home with Ibuprofen, Macrodantin 100 mg daily for 6 weeks, colace 100 mg daily, Sertraline 25 mg daily and hydroxyzine for anxiety as needed. Post Hgb was 10 will hold iron at this time. Can continue Prenatla vitamin. - Vitals & Intake/Output Vital Signs: Vital Signs Temperature 97.7 F 08/12/23 08:27 Pulse Rate 75 08/12/23 08:27 Respiratory Rate 14 08/12/23 08:27 Blood Pressure 97/59 08/12/23 08:27 O2 Sat by Pulse Oximetry 98 08/12/23 08:27 Intake & Output: Intake & Output 03/2708/11/23 08/12/23 08/13/23 11:59 11:59 11:59 11:59 Intake Total 2200 Output Total 1250 Balance -1250 2200 Weight 98.43 kg - Lab Result Diagrams: 08/11/23 04:08 Micro Results-Entire Visit: Microbiology 08/09/23 20:00 Urine Culture - Final Clean Catch Midstream MIXED DOV; 3 OR MORE TYPES. NO PREDOMINANT ORGANISM. NO FURTHER WORKUP. PLEASE RESUBMIT IF CLINICALLY INDICATED. - Radiology Exams Ordered Rad Exams-Entire Visit: Radiology Procedures Category Date Time Status OB TRANSVAGINAL [US] Routine Exams 08/17/23 13:00 Ordered PELVIS TRANS VAGINAL [US] Routine Exams 08/11/23 08:00 Completed - Procedures and Test Procedures and Tests throughout Hospitalization: Therapy Orders & Screens 08/10/23 06:53 EKG STAT Comment: Diagnosis: IUP Discharge Exam General Appearance: no apparent distress, alert Neurologic Exam: alert, oriented x 3, cooperative, normal mood/affect, nml cerebellar function, sensation nml, No motor deficits Eye Exam: PERRL, EOMI, eyes nml inspection Respiratory Exam: normal breath sounds, lungs clear, No respiratory distress Cardiovascular Exam: regular rate/rhythm, normal heart sounds Gastrointestinal/Abdomen Exam: soft, other (FF below U), No tenderness, No mass Back Exam: normal inspection, normal range of motion, No CVA tenderness, No vertebral tenderness Extremity Exam: normal inspection, normal range of motion Final Diagnosis/Problem List - Final Discharge Diagnosis/Problem (1) Post term over 40 weeks Current Visit: Yes Status: Acute Code(s): O48.0 - POST-TERM (2) Chronic UTI Current Visit: Yes Status: Acute Code(s): N39.0 - URINARY TRACT INFECTION, SITE NOT SPECIFIED (3) Iron deficiency anemia Current Visit: Yes Status: Acute Code(s): D50.9 - IRON DEFICIENCY ANEMIA, UNSPECIFIED (4) GBS (group B Streptococcus carrier), +RV culture, currently Current Visit: Yes Status: Acute Code(s): O99.820 - STREPTOCOCCUS B CARRIER STATE COMPLICATING - Discharge Discharge Date: 08/12/23 Disposition: Home, Self-Care Condition: Stable Prescriptions: No Action Ondansetron ODT 4 MG [Zofran Odt 4 mg] 1 tab PO Q8H PRN PRN PRN Reason: Nausea Nystatin Powder 15 gm [Nystop Powder 15 gm] 15 gm TP Mv-Mn/Iron/FA/Herbal/Digestive [ One Tablet] 1 each PO Instructions: How to Express, Store, and Handle Breast Milk, Depression During and After (DC) Additional Instructions: Please return to the OB unit at the hospital on August 15 for a follow up. Follow up ultrasound scheduled for August 16 at 1:00 PM. Arrive 30 minutes before scheduled appointment time. Follow up at Dr Byers's office scheduled for August 24 at 3:00 PM. Prescriptions were sent to [facility] in [place] for Ibuprofen, Zoloft, Hydroxyzine, and Colace. Follow up with: KAYCE RODRIGUEZ MD [Primary Care Provider] - ESEQUIEL BYERS DO [COURTESY STAFF] - (appointment scheduled for August 24 at 3:00 PM.) Forms: OB Discharge Instructions
[2023-08-12 16:39] VITALS: BP 119/74; PULSE 80; TEMP 98.4; O2SAT 97
== END 2023-08-12 17:00 | disposition home or self-care (01) | DRG 806 ==
LOC: OB 03:05 → EEVIPCON 19:10 → OB 19:10 → OBSVTOIN 08-10 03:05
PROVIDERS: ADMIT Family Medicine; ATTEND Family Medicine
PROC: 10E0XZZ Delivery of Products of Conception, External Approach (ICD-10-PCS; principal; 2023-08-10)
PROC: 0HQ9XZZ Repair Perineum Skin, External Approach (ICD-10-PCS; 2023-08-10)
DX: O70.0 First degree perineal laceration during delivery (principal); N39.0 Urinary tract infection, site not specified; Z37.0 Single live birth; O99.820 Streptococcus B carrier state complicating pregnancy; O48.0 Post-term pregnancy; Z3A.40 40 weeks gestation of pregnancy; M25.511 Pain in right shoulder; D50.9 Iron deficiency anemia, unspecified; Z20.828 Contact with and (suspected) exposure to other viral communicable diseases
CPT/HCPCS: 36415; 76830; 80307; 81001; 85025; 86850; 86900; 86901; 87086; 93005; 96372; G0378; G0379; J0290; J1330; J2270; J2405; J2590; A9270-GY

== ENCOUNTER 2024-03-25 12:26 | Emergency (ER) | payer OTHER ==
[2024-03-25 12:41] VITALS: PULSE 103; TEMP 97.6
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
[2024-03-25 14:05] VITALS: BP 100/60
--- NOTE | 2024-03-25 14:17 | XRAY ---
CLINICAL HISTORY: knee pain COMPARISON: None. TECHNIQUE: Thin axial images non-contrast of the left knee joint were obtained along with coronal and sagittal reconstructions. One of the following dose reduction techniques was utilized for this exam: Automated exposure control, adjustment of the mA and/or kV according to patient size, and use of iterative reconstruction. FINDINGS: Bones: Few periarticular sclerotic foci are seen, the largest measuring 5 mm in the lateral femoral condyle suggesting bone islands. Normal alignment of the femur, tibia, fibula, and patella. No fractures or dislocations. No lytic lesions. No evidence of bone marrow edema. Joint Space: Normal joint spaces without significant narrowing. Evidence of a single calcified loose body at the posterior aspect of the knee. Articular Cartilage: Normal appearance of the articular cartilage. No evidence of cartilage thinning, defects, or degenerative changes. Menisci: Normal morphology and density of the medial and lateral menisci. No tears or meniscal degeneration. Ligaments: Intact and normal appearance of the anterior cruciate ligament (ACL), posterior cruciate ligament (PCL), medial collateral ligament (MCL), and lateral collateral ligament (LCL). No ligamentous injury or abnormalities. Tendons: Normal appearance of the patellar tendon, quadriceps tendon, and other tendons around the knee. No tendinopathy or tears. Soft Tissues: Normal appearance of the surrounding soft tissues. No signs of swelling, masses, or abnormal fluid collections. Bursae: No evidence of bursitis or abnormal fluid collections in the prepatellar, infrapatellar, or other bursae. IMPRESSION: 1. No evidence of bone fractures or acute soft tissue injury. 2. Few periarticular sclerotic foci are seen, the largest measuring 5 mm in the lateral femoral condyle suggesting bone islands. Electronically Signed by: Sanjiv Tavera MD. (03/25/2024 14:13:04 EST)
[2024-03-25 14:43] VITALS: O2SAT 98
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
== END 2024-03-25 14:42 | disposition home or self-care (01) ==
LOC: ED 12:26
DX: Z04.1 Encounter for examination and observation following transport accident (principal); M25.562 Pain in left knee; R07.89 Other chest pain; M25.511 Pain in right shoulder; Z79.899 Other long term (current) drug therapy
CPT/HCPCS: 71045; 73030; 73560; 73700; 99285; 99291; 99292

== ENCOUNTER 2024-05-11 06:42 | Emergency (ER) | payer OTHER ==
[2024-05-11 06:55] VITALS: PULSE 91; RESP 18; TEMP 97.1; O2SAT 99
--- NOTE | 2024-05-11 07:38 | ERPHSYRPT ---
- History of Present Illness Time Seen by Provider: 05/11/24 07:15 Source: patient Exam Limitations: no limitations Patient Subjective Stated Complaint: pt states that she has had a cough and head cold for 6 weeks Triage Nursing Assessment: pt ambulated into the er; pt is axo x4; c/o cough; pt states 6/10 pain to chest with coughing; nasal congestion present; dry hacking cough present; skin PDW; vitals wnl; no respiratory distress present Physician History: This is a 24-year-old overweight white female patient of Dr. Rodriguez who presents with cough, nasal congestion intermittently for 6 weeks. She has tried using s everal [id number]-ctq-zzohacs medications without benefit. The cough is dry and nonproductive. She denies shortness of breath. She denies fever. She denies chest pain. She has not had any nausea vomiting or diarrhea symptoms. Patient is concerned that she might have a sinus infection. Timing/Duration: week(s) (6), worse Cough Quality/Degree: moderate, dry cough Possible Cause: no prior episodes Modifying Factors: Improves With: coughing Associated Symptoms: cough, nasal congestion, nasal drainage, sinus infection, sore throat, No chest pain/soreness, No earache, No headache, No shortness of breath Allergies/Adverse Reactions: latex Allergy (Intermediate, Verified 05/11/24 06:43) Hives adhesive tape Allergy (Verified 05/11/24 06:43) Hx Tetanus, Diphtheria Vaccination/Date Given: Yes Hx Influenza Vaccination/Date Given: No Hx Pneumococcal Vaccination/Date Given: No Travel Risk - International Travel Have you traveled outside of the country in past 3 weeks: No - Emerging Infectious Disease Are you exhibiting symptoms associated with any current EIDs: Yes Symptoms: Cough: New Onset - Review of Systems Constitutional: No Symptoms Eyes: No Symptoms Ears, Nose, & Throat: Nose Congestion, Nose Discharge, Throat Pain Respiratory: Cough Cardiac: No Symptoms Abdominal/Gastrointestinal: No Symptoms Genitourinary Symptoms: No Symptoms Musculoskeletal: No Symptoms Skin: No Symptoms Neurological: No Symptoms Psychological: No Symptoms Endocrine: No Symptoms Hematologic/Lymphatic: No Symptoms Immunological/Allergic: No Symptoms All Other Systems: Reviewed and Negative - Past Medical History Pertinent Past Medical History: Yes Neurological History: No Pertinent History ENT History: No Pertinent History Cardiac History: No Pertinent History Respiratory History: No Pertinent History, Other Endocrine Medical History: No Pertinent History Musculoskeletal History: Fractures, Other GI Medical History: No Pertinent History History: No Pertinent History Psycho-Social History: Depression Female Reproductive Disorders: No Pertinent History Other Medical History: "exercise asthma" - Past Surgical History Past Surgical History: Yes (shoulder surgery in 2016) Neuro Surgical History: No Pertinent History Cardiac: No Pertinent History Respiratory: No Pertinent History Gastrointestinal: No Pertinent History Genitourinary: No Pertinent History Musculoskeletal: Other Female Surgical History: No Pertinent History Other Surgical History: leg (tib/fib), right shoulder with a plate, ankle - Female History Hx Last Menstrual Period: 05/11/24 Hx Now: No - Social History Smoking Status: Never smoker Exposure to second hand smoke: Yes Drug Use: none Patient Lives Alone: No - Social Determinants of Health Will the patient participate in the screening: Yes Do you worry about a steady place to live?: No Do you have any problems with any of the following?: No known problems In the past 12 months,have you had to go without utilities?: No Transportation Issues: No Has anyone in your support network made you feel unsafe?: No Have you or anyone in your house had to go without enough: No - Nursing Vital Signs Nursing Vital Signs: Initial Vital Signs Temperature 97.1 F 05/11/24 06:46 Pulse Rate 91 H 05/11/24 06:46 Respiratory Rate 18 05/11/24 06:46 Blood Pressure 112/78 05/11/24 06:46 O2 Sat by Pulse Oximetry 99 05/11/24 06:46 Pain Scale Pain Intensity 6 - Physical Exam General Appearance: no apparent distress, alert, anxiety, obese Eye Exam: PERRL/EOMI, eyes nml inspection Ears, Nose, Throat Exam: normal ENT inspection, TMs normal, moist mucous membranes Neck Exam: normal inspection, non-tender, supple, full range of motion Respiratory Exam: normal breath sounds, lungs clear, airway intact, No chest tenderness, No respiratory distress Gastrointestinal/Abdomen Exam: soft, normal bowel sounds, No tenderness Pelvic Exam: not done Rectal Exam: not done Back Exam: normal inspection, normal range of motion, No CVA tenderness, No vertebral tenderness Extremity Exam: normal inspection, normal range of motion Neurologic Exam: alert, oriented x 3, cooperative, coffee blender II-XII nml as tested, nml cerebellar function, nml station & gait, sensation nml Skin Exam: normal color, warm, dry Lymphatic Exam: No adenopathy SpO2 Interpretation: normal SpO2: 99 O2 Delivery: Room Air - Course Nursing assessment & vital signs reviewed: Yes - Progress Progress: unchanged Air Movement: good Progress Note: 05/11/24 07:45 My medical decision making and the assignment of low complexity to this patient's medical issue today is based on review of the patient's past medical history, review the patient's medication list, reviewed patient drug allergy list, history present illness and physical findings on examination. The workup in this patient does not require radiographic or laboratory studies. Differential diagnosis includes but is not limited to sinus infection, viral/bacterial pharyngitis, upper respiratory infection Blood Culture(s) Obtained: No Antibiotics given: No Counseled pt/family regarding: diagnosis, need for follow-up Medical Desision Making - Diagnostic Testing Diagnostic test were ordered, analyzed, and reviewed by me: No - Risk of complications The pt has a mod risk of morbidity or mortality based on: Need for prescription drug management - Departure Departure Disposition: Home Clinical Impression: Upper respiratory infection Condition: Stable Critical Care Time: No Referrals: KAYCE RODRIGUEZ MD [Primary Care Provider] - Follow up/PCP as directed Additional Instructions: Drink plenty of fluids. Avoid exposure to any type of smoke. Take your medications as prescribed. Call your primary care provider on 05/14/2024 to make arrangements for follow-up appointment to be seen in the next 3 to 5 days. Prescriptions: Amoxicillin 500 mg Cap [Amoxil 500 mg] 500 mg PO TID #21 cap Benzonatate 200 mg PO TID PRN #10 cap PRN Reason: Cough Prednisone 10 mg [Deltasone 10 mg] 10 mg PO TID #12 tablet Albuterol 8 gm Mdi Hfa [Ventolin Hfa MDI] 8 gm IH Q4H #1 unit
[2024-05-11 07:50] VITALS: BP 116/78
== END 2024-05-11 07:58 | disposition home or self-care (01) ==
LOC: ED 06:42
DX: J06.9 Acute upper respiratory infection, unspecified (principal); R05.9 Cough, unspecified; R09.81 Nasal congestion; E66.9 Obesity, unspecified
CPT/HCPCS: 99282

== ENCOUNTER 2024-06-01 06:47 | Emergency (ER) | payer OTHER ==
[2024-06-01 07:02] VITALS: PULSE 109; RESP 18; TEMP 97.1
[2024-06-01 08:09] VITALS: O2SAT 98
--- NOTE | 2024-06-01 08:17 | ERPHSYRPT ---
- History of Present Illness Time Seen by Provider: 06/01/24 07:05 Source: patient Exam Limitations: no limitations Patient Subjective Stated Complaint: pt states she missed the last 3 steps and hurt her ankle Triage Nursing Assessment: pt ambulated into the er; pt is axo x4; c/o rt ankle pain; pt states 6/10 pain to rt ankle; swelling present to rt ankle; strong rt pedal pulse; good ROM to rt ankle; skin PDW; no respiratory distress; vitals wnl Physician History: This is a morbidly obese 24-year-old white female patient who was walking on her stairs when she rolled her right ankle. Patient has had surgery in the right lower leg and right ankle in the past and has retained postoperative surgical metal. She is able to bear weight but it hurts to do so. Occurred: this morning Quality: aching Severity of Pain-Max: mild (To moderate) Severity of Pain-Current: mild (Moderate) Lower Extremities Pain: ankle: right Modifying Factors: Improves With: movement Associated Symptoms: other (Hurts to bear weight but can do so) Allergies/Adverse Reactions: latex Allergy (Intermediate, Verified 06/01/24 06:52) Hives adhesive tape Allergy (Verified 06/01/24 06:52) Home Medications: No Reportable Medications [No Reported Medications] 06/01/24 [History] Hx Tetanus, Diphtheria Vaccination/Date Given: No Hx Influenza Vaccination/Date Given: No Hx Pneumococcal Vaccination/Date Given: No Travel Risk - International Travel Have you traveled outside of the country in past 3 weeks: No - Emerging Infectious Disease Are you exhibiting symptoms associated with any current EIDs: No Symptoms: Cough: New Onset - Review of Systems Constitutional: No Symptoms Eyes: No Symptoms Ears, Nose, & Throat: No Symptoms Respiratory: No Symptoms Cardiac: No Symptoms Abdominal/Gastrointestinal: No Symptoms Genitourinary Symptoms: No Symptoms Musculoskeletal: Injury (Right ankle) Skin: No Symptoms Neurological: No Symptoms Psychological: No Symptoms Endocrine: No Symptoms Hematologic/Lymphatic: No Symptoms Immunological/Allergic: No Symptoms All Other Systems: Reviewed and Negative - Past Medical History Pertinent Past Medical History: Yes Neurological History: No Pertinent History ENT History: No Pertinent History Cardiac History: No Pertinent History Respiratory History: No Pertinent History, Other Endocrine Medical History: No Pertinent History Musculoskeletal History: Fractures, Other GI Medical History: No Pertinent History History: No Pertinent History Psycho-Social History: Depression Female Reproductive Disorders: No Pertinent History Other Medical History: "exercise asthma" - Past Surgical History Past Surgical History: Yes (shoulder surgery in 2016) Neuro Surgical History: No Pertinent History Cardiac: No Pertinent History Respiratory: No Pertinent History Gastrointestinal: No Pertinent History Genitourinary: No Pertinent History Musculoskeletal: Other Female Surgical History: No Pertinent History Other Surgical History: leg (tib/fib), right shoulder with a plate, ankle - Female History Hx Last Menstrual Period: 05/11/24 Hx Now: No - Social History Smoking Status: Never smoker Exposure to second hand smoke: Yes Drug Use: none Patient Lives Alone: No - Social Determinants of Health Will the patient participate in the screening: Yes Do you worry about a steady place to live?: No Do you have any problems with any of the following?: No known problems In the past 12 months,have you had to go without utilities?: No Transportation Issues: No Has anyone in your support network made you feel unsafe?: No Have you or anyone in your house had to go without enough: No - Nursing Vital Signs Nursing Vital Signs: Initial Vital Signs Temperature 97.1 F 06/01/24 06:55 Pulse Rate 109 H 06/01/24 06:55 Respiratory Rate 18 06/01/24 06:55 Blood Pressure 117/81 06/01/24 06:55 O2 Sat by Pulse Oximetry 98 06/01/24 06:55 Pain Scale Pain Intensity 6 - Physical Exam General Appearance: no apparent distress, alert, anxiety, obese Eyes, Ears, Nose, Throat Exam: normal ENT inspection, moist mucous membranes Neck Exam: normal inspection, non-tender, supple, full range of motion Cardiovascular/Respiratory Exam: chest non-tender, no respiratory distress Gastrointestinal/Abdominal Exam: non-tender Back Exam: normal inspection, normal range of motion, No CVA tenderness, No vertebral tenderness Hips Exam: bilateral: non-tender, normal inspection, normal range of motion, no evidence of injury Legs Exam: bilateral leg: non-tender, normal inspection, normal range of motion, no evidence of injury Knees Exam: bilateral knee: non-tender, normal inspection, normal range of motion, no evidence of injury Ankle Exam: right ankle: bone tenderness, soft tissue tenderness, swelling, left ankle: non-tender, normal inspection, normal range of motion, no evidence of injury Foot Exam: bilateral foot: non-tender, normal inspection, normal range of motion, no evidence of injury Neuro/Tendon Exam: normal sensation, normal motor functions, normal tendon functions, no evidence tendon injury Mental Status Exam: alert, oriented x 3, cooperative Skin Exam: normal color, warm, dry SpO2 Interpretation: normal SpO2: 98 O2 Delivery: Room Air - Course Nursing assessment & vital signs reviewed: Yes Ordered Tests: Active Orders 24 hr Category Date Time Status ANKLE (3 VIEWS) Stat Exams 06/01/24 07:02 Completed - Progress Progress: unchanged, pain not gone completely Progress Note: 06/01/24 08:15 My medical decision making and the assignment of low complexity to this patient's medical issue today is based on review of the patient's past medical history, review of the patient's medication list, reviewed patient drug allergy list, history present illness and physical findings on examination. The workup in this patient includes x-ray of the patient's right ankle. Differential diagnosis includes but is not limited to right ankle sprain, right ankle fracture, right ankle dislocation 06/01/24 09:07 The x-ray of the patient's right ankle was interpreted by the radiologist and I reviewed the impression. The impression describes the presence of orthopedic hardware. However no evidence for acute fracture or dislocation. Counseled pt/family regarding: diagnosis, need for follow-up, rad results Medical Desision Making - Diagnostic Testing Diagnostic test were ordered, analyzed, and reviewed by me: Yes Radiological Interpretation: Reviewed by me, Teleradiologist Report - Risk of complications Low Risk: Low risk of morbidity from additional dx testing or treatment - Departure Departure Disposition: Home Clinical Impression: Right ankle sprain Condition: Stable Critical Care Time: No Referrals: KAYCE RODRIGUEZ MD [Primary Care Provider] - Follow up/PCP as directed Additional Instructions: Ice pack to tender area 3-4 times a day for the next 3 days. Wear the Grover wrap for comfort and compression. Weightbearing as tolerated. For worsening pain or persistent pain and swelling, you may follow-up at [facility] orthopedic clinic, it is Tuesday through Tuesday 8 AM to 10 AM and no appointment necessary. Other options include a follow-up with Dr. Jones, [facility] dredge captain. Finally, you could follow-up with your orthopedic surgeon. Use Tylenol and ibuprofen for pain control if there are no contraindications.
--- NOTE | 2024-06-01 08:53 | XRAY ---
Indication: Pain following fall. Comparison: None 3 view right ankle demonstrates old distal tibia/medial malleolus fracture with 2 intact orthopedic screws. Posterior screw tip incidentally protrudes behind bony cortex. Incompletely visualized tibial intramedullary maria luisa. No acute bony, articular, or soft tissue abnormalities.
[2024-06-01 09:11] VITALS: BP 105/74
== END 2024-06-01 09:17 | disposition home or self-care (01) ==
LOC: ED 06:47
DX: S93.401A Sprain of unspecified ligament of right ankle, initial encounter (principal); X50.0XXA Overexertion from strenuous movement or load, initial encounter
CPT/HCPCS: 73610; 99283

== ENCOUNTER 2024-06-22 07:43 | Emergency (ER) | payer OTHER ==
--- NOTE | 2024-06-22 07:53 | ERPHSYRPT ---
- History of Present Illness Time Seen by Provider: 06/22/24 07:52 Source: patient, family Physician History: This is a 24-year-old white female patient who presents to the emergency department by private vehicle secondary to complaint of cough for couple of days. Patient's primary care provider is Dr. Rodriguez. The the patient has a nonproductive, dry cough. She has not had a fever. She denies nausea vomiting and diarrhea symptoms. She has no abdominal pain. Patient tends to come to the emergency department around this time and then wishes to have a document stating that she was here in the emergency department for DCS. She has no emergent complaints Cough Quality/Degree: mild, dry cough Possible Cause: occasional episodes Modifying Factors: Improves With: coughing Associated Symptoms: cough, No fever, No chest pain/soreness, No muscle aches, No nasal congestion, No nasal drainage, No shortness of breath, No sore throat, No wheezing Allergies/Adverse Reactions: latex Allergy (Intermediate, Verified 06/22/24 07:54) Hives adhesive tape Allergy (Verified 06/22/24 07:54) Home Medications: No Reportable Medications [No Reported Medications] 06/01/24 [History] Hx Tetanus, Diphtheria Vaccination/Date Given: No Hx Influenza Vaccination/Date Given: No Hx Pneumococcal Vaccination/Date Given: No Travel Risk - International Travel Have you traveled outside of the country in past 3 weeks: No - Emerging Infectious Disease Are you exhibiting symptoms associated with any current EIDs: No Symptoms: Cough: New Onset - Review of Systems Constitutional: No Symptoms Eyes: No Symptoms Ears, Nose, & Throat: No Symptoms Respiratory: Cough Cardiac: No Symptoms Abdominal/Gastrointestinal: No Symptoms Genitourinary Symptoms: No Symptoms Musculoskeletal: No Symptoms Skin: No Symptoms Neurological: No Symptoms Psychological: No Symptoms Endocrine: No Symptoms Hematologic/Lymphatic: No Symptoms Immunological/Allergic: No Symptoms All Other Systems: Reviewed and Negative - Past Medical History Pertinent Past Medical History: Yes Neurological History: No Pertinent History ENT History: No Pertinent History Cardiac History: No Pertinent History Respiratory History: No Pertinent History, Other Endocrine Medical History: No Pertinent History Musculoskeletal History: Fractures, Other GI Medical History: No Pertinent History History: No Pertinent History Psycho-Social History: Depression Female Reproductive Disorders: No Pertinent History Other Medical History: "exercise asthma" - Past Surgical History Past Surgical History: Yes (shoulder surgery in 2016) Neuro Surgical History: No Pertinent History Cardiac: No Pertinent History Respiratory: No Pertinent History Gastrointestinal: No Pertinent History Genitourinary: No Pertinent History Musculoskeletal: Other Female Surgical History: No Pertinent History Other Surgical History: leg (tib/fib), right shoulder with a plate, ankle - Female History Hx Last Menstrual Period: 05/11/24 - Social History Smoking Status: Never smoker Exposure to second hand smoke: Yes Drug Use: none Patient Lives Alone: No - Social Determinants of Health Will the patient participate in the screening: Yes Do you worry about a steady place to live?: No In the past 12 months,have you had to go without utilities?: No Transportation Issues: No Has anyone in your support network made you feel unsafe?: No Have you or anyone in your house had to go without enough: No - Nursing Vital Signs Nursing Vital Signs: Initial Vital Signs Temperature 98.8 F 06/22/24 07:50 Pulse Rate 101 H 06/22/24 07:50 Blood Pressure 129/75 06/22/24 07:50 O2 Sat by Pulse Oximetry 98 06/22/24 07:50 Pain Scale Pain Intensity 0 - Physical Exam General Appearance: no apparent distress, alert, anxiety, obese Eye Exam: PERRL/EOMI, eyes nml inspection Ears, Nose, Throat Exam: normal ENT inspection, moist mucous membranes Neck Exam: normal inspection, non-tender, supple, full range of motion Respiratory Exam: normal breath sounds, lungs clear, airway intact, No chest tenderness, No respiratory distress Cardiovascular Exam: regular rate/rhythm, normal heart sounds, normal peripheral pulses Gastrointestinal/Abdomen Exam: soft, normal bowel sounds, No tenderness Pelvic Exam: not done Rectal Exam: not done Back Exam: normal inspection, normal range of motion, No CVA tenderness, No vertebral tenderness Extremity Exam: normal inspection, normal range of motion, pelvis stable Neurologic Exam: alert, oriented x 3, cooperative, 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, normal mood/affect, nml cerebellar function, nml station & gait, sensation nml Skin Exam: normal color, warm, dry Lymphatic Exam: No adenopathy SpO2 Interpretation: normal O2 Delivery: Room Air - Course Nursing assessment & vital signs reviewed: Yes Ordered Tests: Active Orders 24 hr Category Date Time Status CHEST 1 VIEW (PORTABLE) Stat Exams 06/22/24 08:04 Taken Lab/Rad Data: Laboratory Results 06/22/24 06/22/24 Range/Units 08:32 08:32 Influenza Type A Ag NEGATIVE (NEGATIVE) Influenza Type B Ag NEGATIVE (NEGATIVE) RSV (PCR) NEGATIVE (NEGATIVE) SARS-CoV-2 (PCR) NEGATIVE (NEGATIVE) Group A Strep Antibody NOT DETECTED (NEGATIVE) - Progress Progress: re-examined, unchanged Air Movement: good Progress Note: 06/22/24 08:42 My medical decision making and the assignment of low complexity to this patient's medical issue today is based on review of the patient's past medical history, review of the patient's medication list, reviewed patient drug allergy list, history present illness and physical findings on examination. The workup in this patient includes chest x-ray, strep test and viral swabs. Differential diagnosis includes but is not limited to viral illness, strep pharyngitis, upper respiratory infection, pneumonia 06/22/24 09:23 I interpreted the patient's laboratory data results. Based on the laboratory data results, there are no acute, emergent medical issues. I interpreted the patient's preliminary chest x-ray report. There is no acute process Blood Culture(s) Obtained: No Antibiotics given: No Counseled pt/family regarding: lab results, diagnosis, need for follow-up Medical Desision Making - Diagnostic Testing Diagnostic test were ordered, analyzed, and reviewed by me: Yes Radiological Interpretation: Interpreted by me, Teleradiologist Report - Risk of complications Minimal Risk: Minimal risk of morbidity - Departure Departure Disposition: Home Clinical Impression: Cough Condition: Stable Critical Care Time: No Referrals: KAYCE RODRIGUEZ MD [Primary Care Provider] - Follow up/PCP as directed Additional Instructions: Drink plenty of fluids. Use [id number] cough suppressant products. Call your primary care provider today to make arrangements for follow-up appointment to be seen in the next 5 to 7 days.
[2024-06-22 07:54] VITALS: TEMP 98.8; O2SAT 98
[2024-06-22 09:11] LABS: INFLUENZA A NEGATIVE (NEGATIVE); INFLUENZA B NEGATIVE (NEGATIVE); RESPIRATORY SYNCTIAL VIRUS NEGATIVE (NEGATIVE); SARS-CoV-2 Xpert Express NEGATIVE (NEGATIVE)
--- NOTE | 2024-06-22 09:26 | XRAY ---
Indication: Cough. Comparison: March 25, 2024 Portable chest again demonstrates normal heart and lungs. Bony thorax intact again with minimal dextroscoliosis and incompletely visualized old right humerus fracture. No new/acute findings.
[2024-06-22 09:32] VITALS: BP 126/70; PULSE 78; RESP 18
== END 2024-06-22 09:31 | disposition home or self-care (01) ==
LOC: ED 07:43
DX: R05.1 Acute cough (principal)
CPT/HCPCS: 0241U; 71045; 87651; 99284; 99283